=== PATIENT | female | born 1935 | race Caucasian/White ===

== ENCOUNTER 2019-11-23 13:58 | Outpatient (CLI) | payer MEDICARE, SELFPAY ==
[2019-11-23 14:14] LABS: Basophils Absolute Auto 0.04 K/mm3 (0.00-0.10); Basophils Percent Auto 0.7 % (0.0-1.0); Eosinophils Absolute Auto 0.27 K/mm3 (0.02-0.50); Hematocrit 33.6 % (35.0-42.0); Hemoglobin 11.3 g/dL (11.7-13.8); Immature Granulocyte Absolute 0.02 K/mm3 (0.00-0.00); Immature Granulocyte Percent A 0.4 % (0.0-0.0); Lymphocytes Absolute Auto 1.95 K/mm3 (1.10-4.50); Mean Corpuscular HGB Conc 33.6 g/dL (32.0-36.0); Mean Corpuscular Hemoglobin 34.7 pg (27.0-31.0); Mean Corpuscular Volume 103.1 fL (78.0-102.0); Mean Platelet Volume 10.2 fl (9.2-11.8); Monocytes Absolute Auto 0.66 K/mm3 (0.10-0.90); Monocytes Percent Auto 12.2 % (2.0-11.0); Neutrophils Absolute Auto 2.5 K/mm3 (1.7-7.2); Neutrophils Percent Auto 45.7 % (50.0-70.0); Platelet Count Result 200 K/mm3 (150-420); Red Blood Count 3.26 M/mm3 (4.20-5.40); Red Cell Distribution Width 13.9 % (11.6-14.4); White Blood Count 5.4 K/mm3 (4.8-10.8)
[2019-11-23 15:44] LABS: Alanine Aminotransferase 18 U/L (14-59); Albumin Level 3.6 g/dL (3.4-5.0); Alkaline Phosphatase 67 U/L (46-116); Anion Gap 12.4 mmol/L (7-16); Aspartate Amino Transferase 15 U/L (15-37); Bilirubin,Total 0.5 mg/dL (0.00-1.00); Blood Urea Nitrogen 19 mg/dL (7-18); Calcium 8.7 mg/dL (8.5-10.1); Carbon Dioxide 30 mmol/L (21-32); Chloride 106 mmol/L (98-108); Estimated Glomerular Filt Rate > 60; Glucose 102 mg/dL (70-99); Osmolality Calculated 300 mOsm/kg (285-295); Potassium 4.4 mmol/L (3.5-5.1); Sodium 144 mmol/L (136-145)
[2019-11-29 09:23] LABS: Vitamin D 25 Hydroxy 69 ng/mL (30-100)
== END 2019-11-23 13:59 | disposition home or self-care (01) ==
LOC: CHSLAB 14:05
PROVIDERS: PCP Family Medicine; Visit Provider Internal Medicine Hematology & Oncology
DX: C50.919 Malignant neoplasm of unspecified site of unspecified female breast (principal); M81.0 Age-related osteoporosis without current pathological fracture
CPT/HCPCS: 36415; 80053; 82306; 85025

== ENCOUNTER 2020-06-20 12:59 | Outpatient (CLI) | payer MEDICARE, SELFPAY ==
[2020-06-20 13:12] LABS: Basophils Absolute Auto 0.06 K/mm3 (0.00-0.10); Eosinophils Absolute Auto 0.26 K/mm3 (0.02-0.50); Eosinophils Percent Auto 4.5 % (1.0-6.0); Hematocrit 34.7 % (35.0-42.0); Hemoglobin 11.2 g/dL (11.7-13.8); Immature Granulocyte Absolute 0.03 K/mm3 (0.00-0.00); Immature Granulocyte Percent A 0.5 % (0.0-0.0); Lymphocytes Absolute Auto 2.06 K/mm3 (1.10-4.50); Lymphocytes Percent Auto 35.3 % (18.0-42.0); Mean Corpuscular HGB Conc 32.3 g/dL (32.0-36.0); Mean Corpuscular Hemoglobin 34.6 pg (27.0-31.0); Mean Corpuscular Volume 107.1 fL (78.0-102.0); Mean Platelet Volume 10.2 fl (9.2-11.8); Monocytes Absolute Auto 0.69 K/mm3 (0.10-0.90); Monocytes Percent Auto 11.8 % (2.0-11.0); Neutrophils Absolute Auto 2.7 K/mm3 (1.7-7.2); Neutrophils Percent Auto 46.9 % (50.0-70.0); Platelet Count Result 204 K/mm3 (150-420); Red Blood Count 3.24 M/mm3 (4.20-5.40); Red Cell Distribution Width 13.6 % (11.6-14.4); White Blood Count 5.8 K/mm3 (4.8-10.8)
[2020-06-20 13:39] LABS: Alanine Aminotransferase 22 U/L (14-59); Albumin Level 3.4 g/dL (3.4-5.0); Alkaline Phosphatase 62 U/L (46-116); Anion Gap 6 mmol/L (8-16); Aspartate Amino Transferase 13 U/L (15-37); Bilirubin,Total 0.3 mg/dL (0.00-1.00); Blood Urea Nitrogen 19 mg/dL (7-18); Calcium 8.3 mg/dL (8.5-10.1); Carbon Dioxide 31 mmol/L (21-32); Chloride 106 mmol/L (98-108); Estimated Glomerular Filt Rate > 60; Glucose 101 mg/dL (70-99); Osmolality Calculated 298 mOsm/kg (285-295); Potassium 4.7 mmol/L (3.5-5.1); Sodium 143 mmol/L (136-145); Total Protein 6.7 g/dL (6.4-8.2)
== END 2020-06-20 13:00 | disposition home or self-care (01) ==
LOC: CHSLAB 13:04
PROVIDERS: PCP Family Medicine; Visit Provider Internal Medicine Hematology & Oncology
DX: C50.919 Malignant neoplasm of unspecified site of unspecified female breast (principal)
CPT/HCPCS: 36415; 80053; 85025

== ENCOUNTER 2020-12-10 12:29 | Outpatient (CLI) | payer MEDICARE, SELFPAY ==
--- NOTE | ~2020-12-10 | DEXA_ITS ---
Bone Density Report Name: Robyn Torrez Age: 85 Sex: Female Ethnicity: White Date of : 1935 Indication: postmenopausal; screening for osteoporosis; Referring Provider: Clark, Sara Zambrano Study: Bone densitometry was performed. Exam Date: December 10, 2020 Accession number: [id number] Bone Density: Region BMD T-score Z-score Classification AP Spine(L1-L4) 0.818 -2.1 0.8 Osteopenia Femoral Neck (Left) 0.513 -3.0 -0.5 Osteoporosis Total Hip (Left) 0.709 -1.9 0.4 Osteopenia Femoral Neck (Right) 0.635 -1.9 0.6 Osteopenia Total Hip (Right) 0.769 -1.4 0.9 Osteopenia Femoral Neck Mean 0.574 -2.5 0.0 Osteoporosis Total Hip Mean 0.739 -1.7 0.7 Osteopenia World Health Organization criteria for BMD impression classify patients as: Normal (T-score at or above -1.0), Osteopenia (T-score between -1.0 and -2.5), or Osteoporosis (T-score at or below -2.5). 10-year Fracture Risk: FRAX not reported because: Some T-score for Spine Total or Hip Total or Femoral Neck at or below -2.5 Treated for osteoporosis Clinical Information Provided by Patient: Is being treated for osteoporosis Has used the following medications: Vitamin D, Calcium No regular weight bearing exercise Number of children 3 Impression: The patient has osteoporosis, based on the Left Femoral Neck T-score. Discussion: It is important to ask patients whether they are taking their medications and to encourage continued and appropriate compliance with their osteoporosis therapies to reduce fracture risk. It is also important to review their risk factors and encourage appropriate calcium and vitamin D intakes, exercise, fall prevention and other lifestyle measures. Follow-Up: Consider a repeat BMD and Vertebral Fracture Assessment (VFA) exam in 2 years or sooner if medically necessary, to reassess this patient's status. Reported by: Dr. Yeyo Costello on 12/10/2020 1:08:00 PM. Reviewed, dictated and finalized at location [facility]
== END 2020-12-10 12:30 | disposition home or self-care (01) ==
LOC: CHSIMG 12:30
PROVIDERS: PCP Family Medicine; Visit Provider Physician Assistant
DX: M81.0 Age-related osteoporosis without current pathological fracture (principal)
CPT/HCPCS: 77080

== ENCOUNTER 2020-12-25 14:15 | Outpatient (CLI) | payer MEDICARE, SELFPAY ==
[2020-12-25 14:28] LABS: Basophils Absolute Auto 0.06 K/mm3 (0.00-0.10); Basophils Percent Auto 0.8 % (0.0-1.0); Eosinophils Absolute Auto 0.26 K/mm3 (0.02-0.50); Eosinophils Percent Auto 3.3 % (1.0-6.0); Hematocrit 35.2 % (35.0-42.0); Hemoglobin 11.5 g/dL (11.7-13.8); Immature Granulocyte Absolute 0.02 K/mm3 (0.00-0.00); Immature Granulocyte Percent A 0.3 % (0.0-0.0); Lymphocytes Absolute Auto 2.48 K/mm3 (1.10-4.50); Lymphocytes Percent Auto 31.7 % (18.0-42.0); Mean Corpuscular HGB Conc 32.7 g/dL (32.0-36.0); Mean Corpuscular Hemoglobin 34.2 pg (27.0-31.0); Mean Corpuscular Volume 104.8 fL (78.0-102.0); Mean Platelet Volume 10.5 fl (9.2-11.8); Monocytes Absolute Auto 0.89 K/mm3 (0.10-0.90); Monocytes Percent Auto 11.4 % (2.0-11.0); Neutrophils Absolute Auto 4.1 K/mm3 (1.7-7.2); Neutrophils Percent Auto 52.5 % (50.0-70.0); Nucleated Red Blood Cells Absolute Auto 0.02 K/mm3 (0.00-0.00); Nucleated Red Blood Cells Perc 0.3 % (0-0.0); Platelet Count Result 237 K/mm3 (150-420); Red Blood Count 3.36 M/mm3 (4.20-5.40); White Blood Count 7.8 K/mm3 (4.8-10.8)
[2020-12-25 15:53] LABS: Alanine Aminotransferase 12 U/L (14-59); Albumin Level 3.8 g/dL (3.4-5.0); Alkaline Phosphatase 59 U/L (46-116); Anion Gap 7 mmol/L (8-16); Aspartate Amino Transferase 15 U/L (15-37); Bilirubin,Total 0.5 mg/dL (0.00-1.00); Blood Urea Nitrogen 22 mg/dL (7-18); Calcium 8.9 mg/dL (8.5-10.1); Carbon Dioxide 31 mmol/L (21-32); Chloride 102 mmol/L (98-108); Estimated Glomerular Filt Rate > 60; Glucose 94 mg/dL (70-99); Osmolality Calculated 293 mOsm/kg (285-295); Potassium 4.6 mmol/L (3.5-5.1); Sodium 140 mmol/L (136-145); Total Protein 7.1 g/dL (6.4-8.2)
== END 2020-12-25 14:16 | disposition home or self-care (01) ==
LOC: CHSLAB 14:17
PROVIDERS: PCP Family Medicine; Visit Provider Internal Medicine Hematology & Oncology
DX: C50.919 Malignant neoplasm of unspecified site of unspecified female breast (principal)
CPT/HCPCS: 36415; 80053; 85025

== ENCOUNTER 2020-12-30 13:50 | Outpatient (CLI) | payer MEDICARE, SELFPAY ==
[2020-12-30 14:06] LABS: Reticulocyte Hemoglobin Conten 38.3 pg (28.0-35.0); Reticulocyte Percent 2.04 % (0.50-1.50); Reticulocytes Absolute 0.06 M/mm3 (0.02-0.1)
[2020-12-30 15:00] LABS: Folic Acid 19.9 ng/mL (8.6->20); Vitamin B12 294 pg/mL (193-986)
== END 2020-12-30 13:51 | disposition home or self-care (01) ==
LOC: CHSLAB 13:53
PROVIDERS: PCP Family Medicine; Visit Provider Internal Medicine Hematology & Oncology
DX: D53.9 Nutritional anemia, unspecified (principal)
CPT/HCPCS: 36415; 82607; 82746; 85046; 88321

== ENCOUNTER 2022-03-11 13:54 | Outpatient (RCR) | payer MEDICARE, SELFPAY ==
--- NOTE | 2022-03-12 07:13 | PTOPEVAL ---
Thank you for referring Robyn Torrez to [facility].? The patient is scheduled to be seen for therapy? ____x/week for ___ weeks. Please review, sign, date and return this plan of care ELBERT. I agree with and certify that the following plan of care is medically necessary. Referring Physician Date Admitting Provider: Attending Provider: Elise Juárez, APNC Referring Provider: *PT Outpatient Evaluation Start: 03/11/22 14:00 Freq: Status: Active Protocol: Document 03/11/22 14:01 Vandana (Rec: 03/11/22 15:27 Vandana [email or web address]) Therapy Assessment Status Assessment Status Assessment Status Evaluation Evaluation Information Problem Diagnosis R HETAL Onset 02/16/22 Additional Evaluation Detail LEFS = 34% functionally impaired Subjective Information Pt reports that she has been Query Text:As Reported By Patient/ doing well since having her Family hip replacement. She does not take her pain medication from her physician any longer, but took two Alleve this morning. She has pain on the side of her right groin and front of her thigh. She states that she has been using the steps at her house and has been using the up with the good and down with the bad walking pattern for stairs that she learned in previous therapy. Prior Level of Function Comments Additional Prior Level of Function Before her surgery, she was Comments able to mow her grass on her own and carry out household tasks on her own. Pain Assessment Timing of Pain Assessment Timing of Pain Assessment Pre-Treatment Pain Scale Pain Scale Used Numeric (1 - 10) Self Report Pain Assessment Right Hip(s) Reported Pain Level 1 Pain Description Dull Pain Score Pain Score 1: Self Report Additional Pain Score Comments Pain becomes worse if she is up on her feet cooking or walking around the house. Interventions Used Interventions Used By Clinicians Education,Exercise Lower Extremity Range of Motion Hip Range of Motion Right Hip Flexion Range of Motion - Passive 90 Left Hip Flexion Range of Motion - Passive 120 Lower Extremity Muscle Strength Testing Hip Strength Right Hip Flexion Strength 4 Good Hip Abduction Strength 4 Good Left Hip Flexion Streng
== END 2022-04-07 15:06 | disposition home or self-care (01) ==
LOC: CHSPT 13:54
PROVIDERS: PCP Family Medicine; Visit Provider Registered Nurse
DX: Z96.641 Presence of right artificial hip joint (principal)
CPT/HCPCS: 97110; 97112; 97161; 97530